=== PATIENT | male | born 1930 | race Caucasian/White ===

== ENCOUNTER 2019-08-04 15:34 | Emergency (ER) | payer MEDICARE, OTHER ==
[~2019-08-04] VITALS: Ht 172.7 cm; Wt 83.2 kg
[~2019-08-04 15:34] MED LIST: AMLO-145 PO; BISA10SU75 PR; DOCU-144 PO
[2019-08-04 15:41] VITALS: Ht 172.7 cm; Wt 83.2 kg
[2019-08-04 18:15] VITALS: BP 167/85; PULSE 76; RESP 14
== END 2019-08-04 18:16 | disposition home or self-care (01) ==
LOC: E/R 15:34
DX: K62.5 Hemorrhage of anus and rectum (principal); N18.9 Chronic kidney disease, unspecified
CPT/HCPCS: 80053; 85025; 85610; 85730; 86850; 86900; 86901; 99284